=== PATIENT | male | born 1955 | race Two or more races ===

== ENCOUNTER 2021-07-10 19:54 | Inpatient (IN) | payer MEDICARE ==
[~2021-07-10] VITALS: Ht 165.1 cm; Wt 64.6 kg
[2021-07-11 00:36] LABS: BASOPHILS % 0.7 % (0.0-2.0); EOSINOPHILS % 7.6 % (0.0-5.0); HEMATOCRIT. 27.6 % (42.0-52.0); HEMOGLOBIN. 9.5 g/dL (14.0-18.0); LYMPHOCYTES % 17.1 % (20.0-50.0); MEAN CORPUSCULAR HEMOGLOBIN 30.1 pg (28.0-32.0); MEAN CORPUSCULAR VOLUME 87.8 fL (80.0-94.0); MEAN PLATELET VOLUME 7.3 fl (7.4-10.4); MONOCYTES % 8.9 % (2.0-8.0); NEUTROPHILS % 65.7 % (40.0-76.0); PLATELET 305 x1000/uL (130-400); RED BLOOD CELL COUNT 3.14 mill/uL (4.7-6.1); RED CELL DISTRIBUTION WIDTH 16.6 % (11.6-14.6)
[2021-07-11 00:41] LABS: CHLORIDE 106 mEq/L (98-107)
[2021-07-11] MEDS ORDERED: HEPARIN 25,000 UNITS PREMIX 250 ML IV ONE (01:45)
[2021-07-11] MEDS: HEPARIN 25,000 UNITS PREMIX 250 ML IV SCH (02:34)
[2021-07-11] MEDS ORDERED: HEPARIN BOLUS PRN aPTT 30-44 IV (03:00)
[2021-07-11] MEDS ORDERED: HEPARIN BOLUS PRN aPTT <30 IV (03:00)
[2021-07-11] MEDS ORDERED: SPIRONOLACTONE 25MG TABLET PO SCH (09:00)
[2021-07-11] MEDS: METOPROLOL TARTRATE 25MG TABLET PO SCH ×2 (10:10→22:11)
[2021-07-11] MEDS: ASPIRIN 81MG TABLET PO SCH (10:11)
[2021-07-11] MEDS ORDERED: FUROSEMIDE 40MG/4ML VIAL IVP SCH (18:00)
[2021-07-11 19:55] VITALS: BP 135/86
[2021-07-11 20:00] VITALS: BP 135/86
[2021-07-11 22:00] VITALS: BP 128/60
[2021-07-11] MEDS: ATORVASTATIN CALCIUM 40MG TABLET PO SCH (22:11)
[2021-07-12] VITALS (22 sets, daily range): BP systolic 91–162; BP diastolic 53–97
[2021-07-12] MEDS ORDERED: ONDANSETRON HCL 4MG/2ML INJ IV PRN (01:45)
[2021-07-12] MEDS ORDERED: SODIUM CHLORIDE 0.9% 250 ML IV NR (02:00)
[2021-07-12 03:56] LABS: BASOPHILS % 0.7 % (0.0-2.0); EOSINOPHILS % 3.8 % (0.0-5.0); HEMATOCRIT. 31.8 % (42.0-52.0); HEMOGLOBIN. 10.4 g/dL (14.0-18.0); LYMPHOCYTES % 9.8 % (20.0-50.0); MEAN CORPUSCULAR HEMOGLOBIN 28.7 pg (28.0-32.0); MEAN CORPUSCULAR VOLUME 87.6 fL (80.0-94.0); MEAN PLATELET VOLUME 7.7 fl (7.4-10.4); MONOCYTES % 9.8 % (2.0-8.0); NEUTROPHILS % 75.9 % (40.0-76.0); PARTIAL THROMBOPLASTIN TIME 53.9 sec (23.4-31.0); PLATELET 292 x1000/uL (130-400); PROTHROMBIN TIME 11.1 sec (9.6-11.0); RED BLOOD CELL COUNT 3.63 mill/uL (4.7-6.1); RED CELL DISTRIBUTION WIDTH 16.2 % (11.6-14.6)
[2021-07-12] MEDS: HEPARIN 25,000 UNITS PREMIX 250 ML IV SCH (04:45)
[2021-07-12] MEDS ORDERED: HEPARIN SODIUM 1,000 UNIT/1ML VIAL IV ONE (08:32)
[2021-07-12] MEDS: ASPIRIN 81MG TABLET PO SCH (09:43)
[2021-07-12] MEDS ORDERED: MIDAZOLAM HCL 2 MG/2 ML VIAL ONE ×2 (12:44→14:37)
[2021-07-12] MEDS ORDERED: FENTANYL CITRATE/PF 50MCG/ML 2ML VIAL ONE (12:44)
[2021-07-12] MEDS ORDERED: LIDOCAINE HCL 1% 30ML VIAL (10MG/ML) ONE (12:45)
[2021-07-12] MEDS ORDERED: IODIXANOL 320MG/ML 100 ML BOTTLE IV ONE ×3 (12:45→15:19)
[2021-07-12] MEDS ORDERED: IOHEXOL-300 100 ML BOTTLE ONE (14:20)
[2021-07-12] MEDS ORDERED: DIPHENHYDRAMINE 50MG/ML VIAL ONE (14:39)
[2021-07-12] MEDS ORDERED: CLOPIDOGREL 75MG TABLET ONE ×2 (16:02→16:06)
[2021-07-12] MEDS ORDERED: ATROPINE SULFATE 1MG/10ML SYR IV PRN (16:15)
[2021-07-12] MEDS ORDERED: SODIUM CHLORIDE 0.45% 500 ML IV SCH (16:15)
[2021-07-12] MEDS ORDERED: ACETAMINOPHEN 325MG TABLET PO PRN (16:15)
[2021-07-12] MEDS ORDERED: ASPI-1406 PO (20:39)
[2021-07-12] MEDS: ATORVASTATIN CALCIUM 40MG TABLET PO SCH (21:50)
[2021-07-13] VITALS (16 sets, daily range): BP systolic 104–152; BP diastolic 55–76
[2021-07-13] MEDS ORDERED: LISI10TA26 PO (00:04)
[2021-07-13] MEDS ORDERED: METO25TA6 PO (00:04)
[2021-07-13] MEDS ORDERED: ATOR-2 PO (00:04)
[2021-07-13] MEDS ORDERED: LEVO75TA7 PO (00:04)
[2021-07-13 08:33] LABS: BASOPHILS % 0.4 % (0.0-2.0); EOSINOPHILS % 4.6 % (0.0-5.0); HEMATOCRIT. 28.3 % (42.0-52.0); HEMOGLOBIN. 9.8 g/dL (14.0-18.0); LYMPHOCYTES % 9.7 % (20.0-50.0); MEAN CORPUSCULAR HEMOGLOBIN 30.4 pg (28.0-32.0); MEAN CORPUSCULAR VOLUME 87.8 fL (80.0-94.0); MEAN PLATELET VOLUME 7.9 fl (7.4-10.4); MONOCYTES % 7.7 % (2.0-8.0); NEUTROPHILS % 77.6 % (40.0-76.0); PLATELET 280 x1000/uL (130-400); RED BLOOD CELL COUNT 3.23 mill/uL (4.7-6.1); RED CELL DISTRIBUTION WIDTH 16.5 % (11.6-14.6)
[2021-07-13] MEDS: CLOPIDOGREL 75MG TABLET PO SCH (09:07)
[2021-07-13] MEDS: ASPIRIN 81MG TABLET PO SCH (09:07)
[2021-07-13] MEDS ORDERED: SPIR25TA PO (12:26)
[2021-07-13] MEDS ORDERED: LISI-186 MT (12:26)
[2021-07-13] MEDS ORDERED: CARV3.1242 MT (12:26)
[2021-07-13] MEDS ORDERED: ASPI-1406 PO (12:26)
[2021-07-13] MEDS ORDERED: LIP40 PO (12:26)
[2021-07-13] MEDS ORDERED: DOCUSATE SODIUM 100MG CAPSULE PO NR (14:30)
[2021-07-13] MEDS ORDERED: LACTULOSE 20G/30ML UDC PO NR (17:15)
[2021-07-13] MEDS: ATORVASTATIN CALCIUM 40MG TABLET PO SCH (20:10)
[2021-07-14] VITALS (8 sets, daily range): BP systolic 99–148; BP diastolic 62–84
[2021-07-14] MEDS: CLOPIDOGREL 75MG TABLET PO SCH (08:04)
[2021-07-14] MEDS: ASPIRIN 81MG TABLET PO SCH (08:04)
[2021-07-14] MEDS ORDERED: FUROSEMIDE 40MG TABLET PO SCH (09:00)
== END 2021-07-14 14:28 | disposition home or self-care (01) | DRG 246 ==
LOC: ER 19:54 → MICUSO 07-11 02:49 → 3WST 07-11 20:49
PROVIDERS: ADMIT Internal Medicine; ATTEND Internal Medicine
PROC: 027136Z Dilation of Coronary Artery, Two Arteries with Three Drug-eluting Intraluminal Devices, Percutaneous Approach (ICD-10-PCS; principal; 2021-07-12)
PROC: 4A023N7 Measurement of Cardiac Sampling and Pressure, Left Heart, Percutaneous Approach (ICD-10-PCS; 2021-07-12)
PROC: B211YZZ Fluoroscopy of Multiple Coronary Arteries using Other Contrast (ICD-10-PCS; 2021-07-12)
PROC: B215YZZ Fluoroscopy of Left Heart using Other Contrast (ICD-10-PCS; 2021-07-12)
PROC: B212YZZ Fluoroscopy of Single Coronary Artery Bypass Graft using Other Contrast (ICD-10-PCS; 2021-07-12)
PROC: B218YZZ Fluoroscopy of Left Internal Mammary Bypass Graft using Other Contrast (ICD-10-PCS; 2021-07-12)
DX: I21.4 Non-ST elevation (NSTEMI) myocardial infarction (principal); I50.21 Acute systolic (congestive) heart failure; E44.0 Moderate protein-calorie malnutrition; I11.0 Hypertensive heart disease with heart failure; I16.0 Hypertensive urgency; D64.9 Anemia, unspecified; I25.10 Atherosclerotic heart disease of native coronary artery without angina pectoris; Z95.1 Presence of aortocoronary bypass graft; Z20.822 Contact with and (suspected) exposure to COVID-19; Z68.23 Body mass index [BMI] 23.0-23.9, adult
CPT/HCPCS: 36415; 71045; 80048; 80053; 82962; 83880; 84484; 85025; 85347; 85651; 86140; 87426; 92928; 93005; 93306; 93458; 99291; C1725; C1760; C1769; C1874; C1887; C1893; C1894; J1200; J1644; J1940; J2250; J2405; J3010; J3490; Q9967